=== PATIENT | female | born 1950 | race American Indian/Alaskan Native ===

== ENCOUNTER 2017-01-10 12:58 | Emergency (ER) | payer MEDICARE ==
[2017-01-10 13:39] LABS: Basophils % (Auto) 0.7 % (0.0-1.8); Eosinophils % (Auto) 0.8 % (0.0-4.3); Hematocrit 35.8 % (30.3-42.9); Hemoglobin 11.7 gm/dl (10.1-14.3); Mean Corpuscular HGB Conc 33 % (30-34); Mean Corpuscular Hemoglobin 28 pg (28-32); Mean Corpuscular Volume 85 fl (79-97); Platelet Count 247 K/mm3 (140-440); Red Blood Count 4.23 M/mm3 (3.65-5.03); Red Cell Distribution Width 13.8 % (13.2-15.2); White Blood Count 5.4 K/mm3 (4.5-11.0)
[2017-01-10 13:54] LABS: Alanine Aminotransferase 53 units/L (7-56); Albumin 3.6 g/dL (3.9-5); Albumin/Globulin Ratio 0.8 %; Alkaline Phosphatase 188 units/L (35-129); Anion Gap 19 mmol/L; BUN/Creatinine Ratio 13.33; Blood Urea Nitrogen 8 mg/dL (7-17); Calcium 9.1 mg/dL (8.4-10.2); Carbon Dioxide 24 mmol/L (22-30); Chloride 101.7 mmol/L (98-107); Glucose 102 mg/dL (65-100); Lipase 96 units/L (13-60); Potassium 3.8 mmol/L (3.6-5.0); Sodium 141 mmol/L (137-145); Total Protein 8.3 g/dL (6.3-8.2)
[2017-01-10] MEDS ORDERED: LEVAQUIN 750MG/150ML 750 MG/150 ML BAG IV ONE (17:13)
[2017-01-10] MEDS ORDERED: NACL 0.9% 1000 ML 1,000 ML IV ONE (17:13)
[2017-01-10] MEDS ORDERED: ZOFRAN IV ONE (17:13)
[2017-01-10] MEDS ORDERED: TORADOL IV ONE (17:13)
[2017-01-10] MEDS ORDERED: DILAUDID IV ONE ×3 (17:13→21:14)
--- NOTE | 2017-01-10 17:20 | Emergency Department Report ---
ED Abdominal Pain HPI - General Chief Complaint: Abdominal Pain Stated Complaint: LFT LOW ABD PAIN/NAUSEA/DIARRHEA Time Seen by Provider: 01/10/17 16:52 Source: patient Mode of arrival: Ambulatory Limitations: No Limitations - History of Present Illness MD Complaint: abdominal pain -: Gradual Location: LLQ, L flank Radiation: none Migration to: no migration Severity: mild Severity scale (0 -10): 3 Quality: cramping Consistency: intermittent Improves With: nothing Worsens With: nothing Associated Symptoms: nausea. denies: vomiting, diarrhea, fever, chills, constipation, dysuria, hematemesis - Related Data Previous Rx's Medication Instructions Recorded Last Taken Type Ciprofloxacin HCl [Ciprofloxacin 500 mg PO Q12H #20 tab 01/10/17 Unknown Rx TAB] HYDROcodone/APAP 5-325 [[place] 1 each PO BID #15 tablet 01/10/17 Unknown Rx 5/325] metroNIDAZOLE [Flagyl] 500 mg PO Q12HR #20 tab 01/10/17 Unknown Rx Allergies Allergy/AdvReac Type Severity Reaction Status Date / Time clarithromycin [From Biaxin] AdvReac Unknown Verified 01/10/17 13:14 diphenhydramine HCl AdvReac Unknown Verified 01/10/17 13:14 [From Benadryl] NSAIDS (Non-Steroidal AdvReac Unknown Verified 01/10/17 13:14 Anti-Inflamma zolpidem tartrate AdvReac Unknown Verified 01/10/17 13:14 [From Ambien] ED Review of Systems ROS: Stated complaint: LFT LOW ABD PAIN/NAUSEA/DIARRHEA Other details as noted in HPI Comment: All other systems reviewed and negative ED Past Medical Hx - Past Medical History Hx Hypertension: Yes (DIET CONTROLLED) Hx Diabetes: Yes (DIET CONTROLLED / BORDERLINE) Hx Renal Disease: Yes Additional medical history: ACHOLASIA ESOPHAGUS - Surgical History Additional Surgical History: HYSTERECTOMY. LEFT KNEE REPLACEMENT - Social History Smoking Status: Never Smoker Substance Use Type: None - Medications Home Medications: Home Medications Medication Instructions Recorded Confirmed Last Taken Type Ciprofloxacin HCl [Ciprofloxacin 500 mg PO Q12H #20 tab 01/10/17 Unknown Rx TAB] HYDROcodone/APAP 5-325 [[place] 1 each PO BID #15 tablet 01/10/17 Unknown Rx 5/325] metroNIDAZOLE [Flagyl] 500 mg PO Q12HR #20 tab 01/10/17 Unknown Rx ED Physical Exam - General Limitations: No Limitations General appearance: alert, in no apparent distress - Head Head exam: Present: atraumatic, normocephalic - Eye Eye exam: Present: normal appearance, PERRL, EOMI - ENT ENT exam: Present: normal exam, normal orophraynx, mucous membranes moist - Neck Neck exam: Present: normal inspection - Respiratory Respiratory exam: Present: normal lung sounds bilaterally. Absent: respiratory distress - Cardiovascular Cardiovascular Exam: Present: regular rate, normal rhythm. Absent: systolic murmur, diastolic murmur, rubs, gallop - GI/Abdominal GI/Abdominal exam: Present: soft, tenderness (mild tenderness on RUQ and LUQ), normal bowel sounds. Absent: distended, guarding, rebound, rigid - Extremities Exam Extremities exam: Present: normal inspection - Back Exam Back exam: Present: normal inspection - Neurological Exam Neurological exam: Present: alert, oriented X3 - Psychiatric Psychiatric exam: Present: normal affect, normal mood - Skin Skin exam: Present: warm, dry, intact, normal color. Absent: rash ED Course Vital Signs 01/10/17 01/10/17 01/10/17 13:05 17:18 17:30 Temperature 98.6 F Pulse Rate 74 Respiratory 16 16 18 Rate Blood Pressure 154/105 O2 Sat by Pulse 99 99 Oximetry 01/10/17 01/10/17 18:00 18:55 Temperature Pulse Rate Respiratory 18 18 Rate Blood Pressure O2 Sat by Pulse Oximetry ED Medical Decision Making - Lab Data Result diagrams: 01/10/17 13:19 01/10/17 13:19 - Radiology Data Radiology results: report reviewed, image reviewed - Medical Decision Making patient doing well, pain better , although wants one more dose before going home , GB US is negative , CT AB and PELV is non diagnositc too, labs negative , will start abx for possible diverticulitis, and has follow up with GI already set up. Critical care attestation.: If time is entered above; I have spent that time in minutes in the direct care of this critically ill patient, excluding procedure time. ED Disposition Clinical Impression: Abdominal pain Disposition: DC-01 TO HOME OR SELFCARE Is pt being admited?: No Does the pt Need Aspirin: No Condition: Good Instructions: Abdominal Pain (ED) Prescriptions: Ciprofloxacin HCl [Ciprofloxacin TAB] 500 mg PO Q12H #20 tab HYDROcodone/APAP 5-325 [[place] 5/325] 1 each PO BID #15 tablet metroNIDAZOLE [Flagyl] 500 mg PO Q12HR #20 tab Referrals: ALEKSANDRA ETIENNE MD [Primary Care Provider] - 3-5 Days Time of Disposition: 21:00
[2017-01-10] MEDS ORDERED: FLAGYL 500 MG/100 ML 500 MG/100 ML BAG IV SCH (18:00)
[2017-01-10 18:09] LABS: Bilirubin,Urine NEG (Negative); Blood,Urine NEG (Negative); Ketones,Urine NEG (Negative); Leukocyte Esterase,Urine NEG (Negative); Mucus,Urine FEW /HPF; Nitrite,Urine NEG (Negative); Urobilinogen,Urine < 2.0 mg/dL (<2.0); WBC,Urine < 1.0 /HPF (0.0-6.0)
--- NOTE | 2017-01-10 19:14 | Ultrasound Report ---
FINAL REPORT EXAM: US ABDOMEN COMPLETE HISTORY: Abdominal Pain TECHNIQUE: Multiple grayscale sonographic images were obtained of the abdomen PRIORS: None. FINDINGS: No gross abnormality is seen in the visualized portion of the pancreas. The pancreas is incompletely evaluated in this study. Visualized portion of the aorta is normal in caliber. No focal hepatic lesion is identified in the images provided. Right and left kidney measure 9.5 and 10.7 centimeters in length, respectively. There is preserved corticomedullary differentiation. Gallbladder appears normal. No shadowing stones are seen. Wall thickness is approximately 2.5 millimeters. The common bile duct measures 3.4 millimeters in diameter. Spleen measures approximately 9.8 centimeters in length. It has normal echotexture. IMPRESSION: 1. Gallbladder appears within normal limits. No shadowing stones are seen. 2. No abnormal biliary dilatation is seen. 3. No gross abnormality is identified in the visualized portions of the solid organs.
[2017-01-10] MEDS ORDERED: NACL ONE (19:28)
--- NOTE | 2017-01-10 20:33 | Cat Scan Report ---
FINAL REPORT EXAM: CT ABDOMEN PELVIS W CON HISTORY: abdominal pain TECHNIQUE: Serial axial images through the abdomen and pelvis during intravenous administration of contrast with coronal and sagittal reconstruction. PRIORS: None. FINDINGS: Bilateral breast implants are noted. There is atelectasis in the lung bases. No pleural effusion is seen. Surgical clips are seen in the left upper quadrant. Gallbladder appears normal. No focal hepatic lesion is identified. Pancreas appears normal. Spleen appears normal. Adrenal glands appear normal. Right kidney appears normal. There is a hypodense focus in the inferior pole left kidney which is too small to definitely characterize. Aorta is normal in caliber. Bladder is decompressed. Uterus is absent. No free fluid. The appendix appears within normal limits. There is not evidence of bowel obstruction. No gross bowel abnormality is identified. Surgical clips are seen in the anterior abdominal wall. There are degenerative changes in the spine. IMPRESSION: 1. Surgical sequelae are noted. 2. Normal appearing appendix. 3. No free fluid or inflammatory changes are seen in the abdomen or pelvis. 4. There is a hypodense focus in the inferior pole left kidney which is too small to definitely characterize.
[2017-01-10 22:01] VITALS: BP 156/90
== END 2017-01-10 21:25 | disposition home or self-care (01) ==
LOC: ED 12:58
DX: R10.30 Lower abdominal pain, unspecified (principal); I10 Essential (primary) hypertension; E11.9 Type 2 diabetes mellitus without complications
CPT/HCPCS: 36415; 74177; 76700; 80053; 81001; 83690; 85025; 96361; 96365; 96366; 96375; 96376; 99284; J1170; J1885; J1956; J2405; J7030; Q9967